=== PATIENT | female | born 1950 | race Caucasian/White ===

== ENCOUNTER 2017-02-02 22:10 | Inpatient (IN) | payer MEDICARE ==
[~2017-02-02] VITALS: Ht 167.6 cm; Wt 96.6 kg
--- NOTE | 2017-02-02 22:13 | NUR ---
Pt BIB Ambulance from [place], on 5150 hold for S.I., 2nd day of hold. Pt denies HI and halucinations. Pt c/o lower leg edema bilaterally. Pt denies CP, SOB, numbness/tingling, dizziness, n/v, no other complaints, no distress noted.
[2017-02-02] MEDS ORDERED: ALBUTEROL SULFATE 2.5 MG/3 ML NEBU NEB ONE (22:30)
[2017-02-02] MEDS ORDERED: BENA5TAB2 PO (22:31)
[2017-02-02] MEDS ORDERED: DILT240C2 PO (22:31)
[2017-02-02] MEDS ORDERED: AMIO200T6 PO (22:31)
[2017-02-02] MEDS ORDERED: FAMO-132 PO (22:31)
[2017-02-02] MEDS ORDERED: APIX5TAB PO (22:31)
[2017-02-02] MEDS ORDERED: ALBU8.5H8 IH (22:31)
[2017-02-02] MEDS ORDERED: POTA20LI4 PO (22:31)
[2017-02-02] MEDS ORDERED: FURO20TA4 PO (22:31)
[2017-02-02] MEDS ORDERED: CARV6.252 PO (22:31)
[2017-02-02] MEDS ORDERED: DIGO125T PO (22:31)
[2017-02-02] MEDS ORDERED: ALBUTEROL SULFATE 2.5 MG/3 ML NEBU ONE (22:37)
[2017-02-02] MEDS ORDERED: NITROGLYCERIN OINT 1 GM PACKET TP ONE ×2 (22:45→23:09)
[2017-02-02 23:21] LABS: CREATININE 1.2 mg/dL (0.6-1.3); POTASSIUM 4.3 mmol/L (3.5-5.1)
[2017-02-02 23:36] LABS: BILIRUBIN,DIRECT 0.1 mg/dL (0.0-0.2); BILIRUBIN,TOTAL 0.5 mg/dL (0.2-1.0); TOTAL PROTEIN, SERUM 6.4 g/dL (6.4-8.2)
[2017-02-02 23:44] LABS: BASOPHILS # (AUTO) 0.3 K/uL (0.0-8.0); BASOPHILS % (AUTO) 2.5 % (0.0-2.0); EOSINOPHILS % (AUTO) 0.4 % (0.0-7.0); HEMATOCRIT 46.4 % (37-47); HEMOGLOBIN 14.6 G/DL (12.0-16.0); LYMPHOCYTES # (AUTO) 1.1 K/UL (0.8-4.8); LYMPHOCYTES % (AUTO) 9.5 % (20.5-51.5); MEAN CORPUSCULAR HEMOGLOBIN 31.1 UUG (27.0-31.0); MEAN CORPUSCULAR HGB CONC 31 g/dL (32.0-37.0); MEAN CORPUSCULAR VOLUME 99.1 FL (81.0-99.0); MONOCYTES # (AUTO) 0.6 K/UL (0.1-1.30); MONOCYTES % (AUTO) 5.7 % (0.0-11.0); NEUTROPHILS # (AUTO) 9.4 K/UL (1.8-8.9); NEUTROPHILS % (AUTO) 81.9 % (38.5-71.5); PLATELET COUNT (AUTO) 202 K/UL (150-450); RED BLOOD CELL COUNT(AUTO) 4.68 MIL/UL (4.2-5.4); WHITE BLOOD COUNT (AUTO) 11.4 K/UL (4.0-11.2)
[2017-02-02] MEDS ORDERED: DIGOXIN 500 MCG/2 ML AMP IV ONE (23:45)
[2017-02-03] MEDS ORDERED: DIGOXIN 500 MCG/2 ML AMP ONE (00:09)
[2017-02-03] MEDS ORDERED: ONDANSETRON 4 MG/2 ML VIAL IV PRN (00:45)
[2017-02-03] MEDS ORDERED: methylPREDNISolone SOD SUCC 40 MG/ML VIAL IV SCH (00:45)
[2017-02-03] MEDS ORDERED: HYDROCODONE/APAP 5-325MG TABLET PO PRN (00:45)
[2017-02-03] MEDS ORDERED: ALBUTEROL SULFATE 2.5 MG/ 0.5 ML NEBU NEB ONE (00:45)
[2017-02-03] MEDS ORDERED: IPRATROPIUM BROMIDE 0.5 MG/2.5 ML NEBU NEB SCH ×2 (00:45→12:00)
[2017-02-03] MEDS ORDERED: Z GUARD REMEDY PASTE 57 GM TUBE TOP PRN (00:45)
--- NOTE | 2017-02-03 00:50 | NUR ---
Called report to [facility]
[2017-02-03 01:32] VITALS: BP 117/87
[2017-02-03] MEDS: ACETAMINOPHEN 325 MG TABLET PO PRN ×2 (01:54→20:22)
--- NOTE | 2017-02-03 02:00 | NUR ---
received pt from ER, pt alert,oriented, ambulates with walker.admitted due to Afib with RVR. pt is a transfer from [facility], per pt she is here to see a psyche doctor, pt verbalized being depress with her life and not currently taking any medications, denies any thought of hurting herself at this time, but pt will be 5150 with constant observer. heplock, kept on oxygen 2 liters, wheezing but no SOB at this time, vss,afebrile, given tylenol for headache.a-fib on monitor 110-140's HR.
[2017-02-03] MEDS ORDERED: ACETAMINOPHEN 325 MG TABLET ONE (02:05)
--- NOTE | 2017-02-03 04:09 | NUR ---
PT RECEIVED TX IN ER.
[2017-02-03 04:52] VITALS: BP 120/67
--- NOTE | 2017-02-03 06:00 | NUR ---
pt slept well overnight,uses commode without assistance, no changes overnight, afib on monitor 110-120's irregular.will continue to monitor, vss, afebrile,5150 hold.
--- NOTE | 2017-02-03 08:00 | NUR ---
AWAKE ALERT COOPERATE WELL NO RESPIRATORY DISTRESS CONTINUE O2 AT 2L/MIN O2 SAT WAS 96% ON FALL PRECAUTION CALL SCHWARTZ IN REACH AND BED ALARM ON SITTER 1:1 FOR SAFETY
[2017-02-03] MEDS: FUROSEMIDE 40 MG/4 ML VIAL IVP SCH (08:52)
[2017-02-03] MEDS ORDERED: FUROSEMIDE 20 MG/2 ML VIAL IV SCH (09:00)
[2017-02-03] MEDS: methylPREDNISolone SOD SUCC 40 MG/ML VIAL IV SCH ×2 (09:04→17:13)
[2017-02-03] MEDS ORDERED: AMIODARONE HCL 200 MG TABLET PO SCH (10:00)
[2017-02-03] MEDS ORDERED: CARVEDILOL 6.25 MG TABLET PO SCH (10:00)
[2017-02-03] MEDS ORDERED: BENAZEPRIL HCL 5 MG TABLET PO SCH (10:00)
[2017-02-03] MEDS ORDERED: DILTIAZEM HCL CD 240 MG CAP.SR.24H PO SCH (10:00)
[2017-02-03] MEDS ORDERED: HEPARIN SODIUM,PORCINE 5,000 UNITS/ML VIAL SQ SCH (10:00)
[2017-02-03 10:53] LABS: BILIRUBIN,TOTAL 0.6 mg/dL (0.2-1.0); CREATININE 1.2 mg/dL (0.6-1.3); MAGNESIUM 2.1 mg/dL (1.8-2.4); PHOSPHOROUS 5.1 mg/dL (2.5-4.9); TOTAL PROTEIN, SERUM 6.7 g/dL (6.4-8.2)
[2017-02-03 11:28] LABS: THYROID STIMULATING HORMONE 0.955 mIU/mL (0.358-3.740)
[2017-02-03 11:30] VITALS: BP 125/84
[2017-02-03 11:39] LABS: BASOPHILS # (AUTO) 0.1 K/uL (0.0-8.0); BASOPHILS % (AUTO) 0.6 % (0.0-2.0); EOSINOPHILS % (AUTO) 0.1 % (0.0-7.0); HEMATOCRIT 49.6 % (37-47); HEMOGLOBIN 15.6 G/DL (12.0-16.0); LYMPHOCYTES # (AUTO) 0.5 K/UL (0.8-4.8); LYMPHOCYTES % (AUTO) 4.6 % (20.5-51.5); MEAN CORPUSCULAR HEMOGLOBIN 30.8 UUG (27.0-31.0); MEAN CORPUSCULAR HGB CONC 31 g/dL (32.0-37.0); MONOCYTES % (AUTO) 0.1 % (0.0-11.0); NEUTROPHILS # (AUTO) 9.7 K/UL (1.8-8.9); NEUTROPHILS % (AUTO) 94.6 % (38.5-71.5); PLATELET COUNT (AUTO) 179 K/UL (150-450); WHITE BLOOD COUNT (AUTO) 10.3 K/UL (4.0-11.2)
[2017-02-03 11:51] LABS: RED BLOOD CELL COUNT(AUTO) 5.05 MIL/UL (4.2-5.4)
[2017-02-03 11:55] LABS: BAND % (MANUAL) 1 % (0-10); LYMPHOCYTES % (MANUAL) 2 % (20-40); MONOCYTES % (MANUAL) 1 % (2-10); NEUTROPHILS % (MANUAL) 96 % (42-75)
[2017-02-03] MEDS ORDERED: ALBUTEROL SULFATE 2.5 MG/ 0.5 ML NEBU NEB SCH (12:00)
[2017-02-03] MEDS ORDERED: IPRATROPIUM BROMIDE 0.5 MG/2.5 ML NEBU NEB PRN (12:00)
[2017-02-03] MEDS ORDERED: ALBUTEROL SULFATE 2.5 MG/3 ML NEBU NEB SCH (12:00)
[2017-02-03] MEDS ORDERED: ALBUTEROL SULFATE 2.5 MG/3 ML NEBU NEB PRN (12:00)
[2017-02-03] MEDS ORDERED: CEFTRIAXONE 1 G in IV DEXTROSE 5% 50 ML IV SCH (12:00)
[2017-02-03] MEDS ORDERED: ALBUTEROL SULFATE 2.5 MG/ 0.5 ML NEBU NEB PRN (12:00)
[2017-02-03] MEDS: DILTIAZEM HCL CD 240 MG CAP.SR.24H PO SCH (12:05)
[2017-02-03] MEDS: FAMOTIDINE 20 MG TABLET PO SCH ×2 (12:08→20:08)
--- NOTE | 2017-02-03 13:00 | NUR ---
DR LINDER SEEN PATIENT THIS AFTERNOON PATIENT CONDITION INFORM NEW ORDER IN CHART HR STILL TACHYCARDIA VENDER WAS AWARE
[2017-02-03] MEDS: SERTRALINE HCL 50 MG TABLET PO SCH (13:09)
[2017-02-03] MEDS: DIGOXIN 125 MCG TABLET PO SCH (13:09)
[2017-02-03] MEDS: IPRATROPIUM BROMIDE 0.5 MG/2.5 ML NEBU NEB SCH ×3 (13:35→20:00)
[2017-02-03] MEDS: ALBUTEROL SULFATE 2.5 MG/ 0.5 ML NEBU NEB SCH ×2 (13:36→20:00)
[2017-02-03 13:39] LABS: *BILIRUBIN,URIN NEGATIVE (NEGATIVE); *BLOOD, URINE NEGATIVE (NEGATIVE); *CLARITY,URINE CLEAR (CLEAR); *COLOR,URINE LIGHT YELLOW (YELLOW); *KETONES,URINE NEGATIVE (NEGATIVE); *PROTEIN,URINE NEGATIVE (NEGATIVE); *UROBILINOGEN,URINE 0.2 E.U./dl (NORMAL); LEUKOCYTE ESTERASE ,URINE TRACE (NEGATIVE); NITRITE, URINE NEGATIVE (NEGATIVE); PH,URINE 6.5 (5.0-8.0); UGLUCOSE NEGATIVE (NEGATIVE)
[2017-02-03] MEDS: THIAMINE HCL 100 MG TABLET PO SCH (14:36)
[2017-02-03] MEDS: NICOTINE 21 MG/24HR PATCH TD SCH (14:36)
[2017-02-03] MEDS: MULTIVITAMINS,THERAPEUTIC TABLET PO SCH (14:36)
[2017-02-03] MEDS: FOLIC ACID 1 MG TABLET PO SCH (14:36)
[2017-02-03 15:00] VITALS: BP 110/59
[2017-02-03 15:23] LABS: SQUAMOUS EPITHELIAL CELL,UR MODERATE /HPF (NONE SEEN); YEAST,URINE RARE /HPF (NONE SEEN)
--- NOTE | 2017-02-03 15:30 | NUR ---
inhal tx given at 1335
[2017-02-03] MEDS: APIXABAN 5 MG TABLET PO SCH (17:13)
--- NOTE | 2017-02-03 18:00 | NUR ---
NO RESPIRATORY DISTRESS PAIN UNDER CONTROL SAFETY MEASURE PROVIDED BED ALARM ON AND SITTER 1:1 AT BEDSIDE NO S/S OF SUICIDAL THOUGHT
[2017-02-03 19:46] VITALS: BP 102/60
[2017-02-03] MEDS: LEVOFLOXACIN 500 MG/D5W 500 MG in PREMIXED 1 EACH IV SCH (20:08)
[2017-02-03] MEDS: POTASSIUM CHLORIDE 20 MEQ TAB.PRT.SR PO SCH (20:08)
[2017-02-04] VITALS (7 sets, daily range): BP systolic 100–125; BP diastolic 59–76
--- NOTE | 2017-02-04 00:50 | NUR ---
PT still awake watching tv, suddenly she call and complaining of not feeling good, she felt dizzy,, pt was sitting upright in bed, and adjusted her bed to low and checked her bp 123/76 hr 108. pt denies any chest pain , no sob,lips are pink. few minutes afterward pt feel better with head of bed lowered.went to check monitor but there was no changes in the rhythm when the incident occurs. pt adviced to get some sleep and rest. will continue to monitor.
[2017-02-04] MEDS: methylPREDNISolone SOD SUCC 40 MG/ML VIAL IV SCH ×3 (02:10→20:38)
--- NOTE | 2017-02-04 06:00 | NUR ---
no more episode of dizziness, afib on monitor hr 90-110's, sleeping well, voiding well using commode legs swelling subsided.vss,afebrile. will continue to monitor, 72 hr hold status, constant observer at bedside.
--- NOTE | 2017-02-04 07:00 | NUR ---
sputum sent to lab
[2017-02-04 07:03] LABS: BILIRUBIN,TOTAL 0.5 mg/dL (0.2-1.0); CREATININE 1.1 mg/dL (0.6-1.3); PHOSPHOROUS 4.7 mg/dL (2.5-4.9); POTASSIUM 4.3 mmol/L (3.5-5.1); TOTAL PROTEIN, SERUM 6.1 g/dL (6.4-8.2)
[2017-02-04 07:05] LABS: BASOPHILS % (AUTO) 0.1 % (0.0-2.0); HEMATOCRIT 45.1 % (37-47); HEMOGLOBIN 14.2 G/DL (12.0-16.0); LYMPHOCYTES # (AUTO) 0.4 K/UL (0.8-4.8); LYMPHOCYTES % (AUTO) 3.4 % (20.5-51.5); MEAN CORPUSCULAR HGB CONC 32 g/dL (32.0-37.0); MEAN CORPUSCULAR VOLUME 98.4 FL (81.0-99.0); MONOCYTES # (AUTO) 0.1 K/UL (0.1-1.30); NEUTROPHILS # (AUTO) 11.2 K/UL (1.8-8.9); NEUTROPHILS % (AUTO) 95.5 % (38.5-71.5); PLATELET COUNT (AUTO) 181 K/UL (150-450); RED BLOOD CELL COUNT(AUTO) 4.58 MIL/UL (4.2-5.4); WHITE BLOOD COUNT (AUTO) 11.7 K/UL (4.0-11.2)
[2017-02-04] MEDS: IPRATROPIUM BROMIDE 0.5 MG/2.5 ML NEBU NEB SCH ×5 (07:51→19:57)
[2017-02-04] MEDS: ALBUTEROL SULFATE 2.5 MG/ 0.5 ML NEBU NEB SCH ×5 (07:51→19:57)
--- NOTE | 2017-02-04 08:00 | NUR ---
RESTING QUIET NO RESPIRATORY DISTRESS CONTINUE O2 AT 2L /MIN AND KEEP HOB UP AT ALL TIME ON FALL PRECAUTION BED ALARM ON AND SITTER 1:1 AT BEDSIDE FOR SAFETY NO S/S OF SUCIDAL CLOSED OBSERVATION
[2017-02-04] MEDS: POTASSIUM CHLORIDE 20 MEQ TAB.PRT.SR PO SCH ×2 (08:30→20:38)
[2017-02-04] MEDS: FOLIC ACID 1 MG TABLET PO SCH (08:30)
[2017-02-04] MEDS: THIAMINE HCL 100 MG TABLET PO SCH (08:30)
[2017-02-04] MEDS: FAMOTIDINE 20 MG TABLET PO SCH ×2 (08:30→20:38)
[2017-02-04] MEDS: MULTIVITAMINS,THERAPEUTIC TABLET PO SCH (08:30)
[2017-02-04] MEDS: SERTRALINE HCL 50 MG TABLET PO SCH (08:30)
[2017-02-04] MEDS: DILTIAZEM HCL CD 240 MG CAP.SR.24H PO SCH (08:31)
[2017-02-04] MEDS: FUROSEMIDE 40 MG/4 ML VIAL IVP SCH (08:31)
[2017-02-04] MEDS: NICOTINE 21 MG/24HR PATCH TD SCH (08:33)
[2017-02-04] MEDS: APIXABAN 5 MG TABLET PO SCH ×2 (09:14→17:20)
[2017-02-04 09:17] LABS: ABG BASE EXCESS 4.1 mmol/L; ABG HCO3 29.8 mmol/L; ABG PCO2 48.3 mmHg (35.0-45.0); ABG PH 7.408 (7.350-7.450); ABG PO2 66.5 mmHg (75.0-100.0); ABG SITE LEFT BRACHIAL; ABG TOTAL HEMOGLOBIN 15.5 G/dL (12.0-16.0); COHb 1.3 % (0.5-1.5); MetHb 0.3 % (0.0-1.5); O2Hb 92.3 % (94.0-97.0); VENT MODE ROOM AIR
--- NOTE | 2017-02-04 11:00 | NUR ---
DR LINDER SEE PATIENT AND ABG RESULT INFORM NEW ORDER IN CHART
[2017-02-04] MEDS: DIGOXIN 125 MCG TABLET PO SCH (12:21)
[2017-02-04 13:43] LABS: BAND % (MANUAL) 4 % (0-10); LYMPHOCYTES % (MANUAL) 6 % (20-40); NEUTROPHILS % (MANUAL) 90 % (42-75)
--- NOTE | 2017-02-04 17:30 | NUR ---
CONDITION STABLE NO RESPIRATORY DISTRESS NO S/S OF SUICIDAL VERY COOPERATE SAFETY MEASURE PROVIDED SITTER 1:1 AT BEDSIDE AND CALL LIGHT WITHIN REACH
--- NOTE | 2017-02-04 19:35 | NUR ---
Received pt in bed, sitting up watching TV. Alert and oriented x 4, verbally responsive and able to make her needs known. Pt denies any pain or discomfort at this time. No apparent distress noted. Call light within reach. Bed in lowest position, locked w/ side rails up x 2. Safety measures and fall precaution maintained. Will continue to monitor. Continue current plan of care.
[2017-02-04] MEDS: LEVOFLOXACIN 500 MG/D5W 500 MG in PREMIXED 1 EACH IV SCH (20:39)
[2017-02-05 06:37] LABS: BASOPHILS % (AUTO) 0.1 % (0.0-2.0); HEMATOCRIT 45.7 % (37-47); HEMOGLOBIN 14.5 G/DL (12.0-16.0); LYMPHOCYTES # (AUTO) 0.4 K/UL (0.8-4.8); LYMPHOCYTES % (AUTO) 2.5 % (20.5-51.5); MEAN CORPUSCULAR HGB CONC 32 g/dL (32.0-37.0); MEAN CORPUSCULAR VOLUME 97.6 FL (81.0-99.0); MONOCYTES # (AUTO) 0.3 K/UL (0.1-1.30); MONOCYTES % (AUTO) 1.8 % (0.0-11.0); NEUTROPHILS # (AUTO) 13.4 K/UL (1.8-8.9); NEUTROPHILS % (AUTO) 95.6 % (38.5-71.5); PLATELET COUNT (AUTO) 160 K/UL (150-450); RED BLOOD CELL COUNT(AUTO) 4.68 MIL/UL (4.2-5.4); WHITE BLOOD COUNT (AUTO) 14.1 K/UL (4.0-11.2)
--- NOTE | 2017-02-05 06:52 | NUR ---
Pt in bed, appearing to be asleep. No apparent distress noted. Denies pain or discomfort at this time. Safety measures and fall precautions maintained. Call light within reach. Bed locked, lowest position and side rails up x 2. Sitter at bedside. Continue 1:1 for safety. Continue current plan of care.
[2017-02-05 07:16] LABS: BILIRUBIN,TOTAL 0.5 mg/dL (0.2-1.0); MAGNESIUM 2.1 mg/dL (1.8-2.4); PHOSPHOROUS 5.1 mg/dL (2.5-4.9); POTASSIUM 4.3 mmol/L (3.5-5.1); TOTAL PROTEIN, SERUM 5.8 g/dL (6.4-8.2)
[2017-02-05] MEDS: IPRATROPIUM BROMIDE 0.5 MG/2.5 ML NEBU NEB SCH ×4 (07:39→19:04)
[2017-02-05] MEDS: ALBUTEROL SULFATE 2.5 MG/ 0.5 ML NEBU NEB SCH ×4 (07:39→19:04)
[2017-02-05 08:00] VITALS: BP 135/87
[2017-02-05] MEDS: SERTRALINE HCL 50 MG TABLET PO SCH (09:10)
[2017-02-05] MEDS: THIAMINE HCL 100 MG TABLET PO SCH (09:10)
[2017-02-05] MEDS: FAMOTIDINE 20 MG TABLET PO SCH ×2 (09:10→21:21)
[2017-02-05] MEDS: FOLIC ACID 1 MG TABLET PO SCH (09:10)
[2017-02-05] MEDS: NICOTINE 21 MG/24HR PATCH TD SCH (09:10)
[2017-02-05] MEDS: POTASSIUM CHLORIDE 20 MEQ TAB.PRT.SR PO SCH ×2 (09:10→21:21)
[2017-02-05] MEDS: DILTIAZEM HCL CD 240 MG CAP.SR.24H PO SCH (09:12)
[2017-02-05] MEDS: FUROSEMIDE 20 MG TABLET PO SCH (09:12)
[2017-02-05] MEDS: methylPREDNISolone SOD SUCC 40 MG/ML VIAL IV SCH ×2 (09:13→21:21)
[2017-02-05] MEDS: MULTIVITAMINS,THERAPEUTIC TABLET PO SCH (09:13)
[2017-02-05] MEDS: APIXABAN 5 MG TABLET PO SCH ×2 (09:13→16:22)
[2017-02-05 11:26] VITALS: BP 148/73
--- NOTE | 2017-02-05 12:30 | NUR ---
PATIENT SEEN AND EXAMINED BY DR WHALEN WITH NEW ORDERS AND NOTED.PATIENT PLACED ON 14 DAY HOLD.PATIENT AWARE STATED DID NOT ATTEMPT TO KILL HERSELF ONLY THOUGHT ABOUT IT.
[2017-02-05] MEDS: DIGOXIN 125 MCG TABLET PO SCH (12:47)
[2017-02-05 15:47] VITALS: BP 114/69
--- NOTE | 2017-02-05 17:00 | NUR ---
SOME OF THE PATIENTS BELONGINGS WAS TAKEN AWAY FROM HER INCLUDING HER KEYS NAIL CLIPPER MAGNIFYING LENS ETC SEE THE PATIENTS BELONGINGS LIST AND PLACED IN THE CONTRABAND LOCKER ON THE SECOND FLOOR FOR SAFE KEEPING. PATIENT WAS INFORMED THAT WHEN SHE LEAVES WE WILL GIVE BACK HER BELONGINGS TO HER AND SHE EXPRESSED UNDERSTANDING.
[2017-02-05 19:21] VITALS: BP 125/71
--- NOTE | 2017-02-05 19:45 | NUR ---
Received pt in bed, awake alert oriented x 4 and watching TV. Verbally responsive and pleasant. No apparent distress noted. Bed lowest position, locked and side rails up x 2. Safety measures and fall precautions maintained. Call light within reach. Continue current plan of care. Will continue to monitor.
[2017-02-05] MEDS: LEVOFLOXACIN 500 MG/D5W 500 MG in PREMIXED 1 EACH IV SCH (21:21)
[2017-02-06] MEDS: LORAZEPAM 2 MG/1 ML VIAL IV PRN ×2 (01:58→19:52)
[2017-02-06 05:27] VITALS: BP 144/96
[2017-02-06 07:19] LABS: CREATININE 0.9 mg/dL (0.6-1.3); MAGNESIUM 2.1 mg/dL (1.8-2.4); PHOSPHOROUS 4.6 mg/dL (2.5-4.9); POTASSIUM 4.4 mmol/L (3.5-5.1)
[2017-02-06] MEDS: ALBUTEROL SULFATE 2.5 MG/ 0.5 ML NEBU NEB SCH ×4 (07:19→19:41)
[2017-02-06] MEDS: IPRATROPIUM BROMIDE 0.5 MG/2.5 ML NEBU NEB SCH ×4 (07:19→19:41)
--- NOTE | 2017-02-06 07:25 | NUR ---
Pt in bed, slept 2 hours last night. Alert and oriented x 4, verbally responsive. Vitals WNL, stable. No apparent distress noted. Fall precautions and safety measures maintained. Call light within reach. Bed low, locked and side rails up x 2.
[2017-02-06 07:28] LABS: BASOPHILS % (AUTO) 0.1 % (0.0-2.0); HEMATOCRIT 49.4 % (37-47); HEMOGLOBIN 15.6 G/DL (12.0-16.0); LYMPHOCYTES # (AUTO) 0.4 K/UL (0.8-4.8); LYMPHOCYTES % (AUTO) 2.6 % (20.5-51.5); MEAN CORPUSCULAR HEMOGLOBIN 31.1 UUG (27.0-31.0); MEAN CORPUSCULAR HGB CONC 32 g/dL (32.0-37.0); MEAN CORPUSCULAR VOLUME 98.7 FL (81.0-99.0); MONOCYTES # (AUTO) 0.1 K/UL (0.1-1.30); NEUTROPHILS # (AUTO) 13.4 K/UL (1.8-8.9); NEUTROPHILS % (AUTO) 96.3 % (38.5-71.5); PLATELET COUNT (AUTO) 162 K/UL (150-450); RED BLOOD CELL COUNT(AUTO) 5.01 MIL/UL (4.2-5.4); WHITE BLOOD COUNT (AUTO) 13.9 K/UL (4.0-11.2)
[2017-02-06] MEDS ORDERED: SERTRALINE HCL 50 MG TABLET PO SCH (09:00)
--- NOTE | 2017-02-06 09:00 | NUR ---
PATIENT IS AWAKE ALERT AND ORIENTED DENIES PAIN OR DISCOMFORTS AT THIS TIME PATIENT IS COMPLIANT WITH MEDICATIONS AT THIS TIME ENCOURAGED TO VERBALISE FEELINGS.
[2017-02-06] MEDS: FUROSEMIDE 20 MG TABLET PO SCH (09:33)
[2017-02-06] MEDS: DILTIAZEM HCL CD 240 MG CAP.SR.24H PO SCH (09:34)
[2017-02-06] MEDS: methylPREDNISolone SOD SUCC 40 MG/ML VIAL IV SCH (09:35)
[2017-02-06] MEDS: FAMOTIDINE 20 MG TABLET PO SCH ×2 (09:35→19:52)
[2017-02-06] MEDS: APIXABAN 5 MG TABLET PO SCH ×2 (09:35→17:22)
[2017-02-06] MEDS: FOLIC ACID 1 MG TABLET PO SCH (09:35)
[2017-02-06] MEDS: THIAMINE HCL 100 MG TABLET PO SCH (09:35)
[2017-02-06] MEDS: POTASSIUM CHLORIDE 20 MEQ TAB.PRT.SR PO SCH ×2 (09:35→19:53)
[2017-02-06] MEDS: NICOTINE 21 MG/24HR PATCH TD SCH (09:36)
[2017-02-06] MEDS: MULTIVITAMINS,THERAPEUTIC TABLET PO SCH (09:36)
[2017-02-06 11:25] LABS: BAND % (MANUAL) 4 % (0-10); LYMPHOCYTES % (MANUAL) 2 % (20-40); NEUTROPHILS % (MANUAL) 94 % (42-75)
[2017-02-06 12:00] VITALS: BP 131/85
[2017-02-06] MEDS ORDERED: DILT240C64 PO (12:26)
[2017-02-06] MEDS ORDERED: MULT-24 PO (12:26)
[2017-02-06] MEDS ORDERED: APIX5TAB PO (12:26)
[2017-02-06] MEDS ORDERED: PRED10TA PO (12:26)
[2017-02-06] MEDS ORDERED: LEVO500T2 PO (12:26)
[2017-02-06] MEDS ORDERED: FURO20TA4 PO (12:26)
[2017-02-06] MEDS ORDERED: IPRA0.2S6 NEB (12:26)
[2017-02-06] MEDS ORDERED: POTA20TA10 PO (12:26)
[2017-02-06] MEDS ORDERED: DIGO125T5 PO (12:26)
[2017-02-06] MEDS ORDERED: PRED20TA PO ×2 (12:26)
[2017-02-06] MEDS ORDERED: PRED-170 PO (12:26)
[2017-02-06] MEDS ORDERED: ACET325T53 PO (12:26)
[2017-02-06] MEDS ORDERED: FOLI1TAB16 PO (12:26)
[2017-02-06] MEDS ORDERED: ALBU2.5V13 NEB (12:26)
[2017-02-06] MEDS ORDERED: HYDR-3326 PO (12:26)
[2017-02-06] MEDS ORDERED: THIA100T13 PO (12:26)
[2017-02-06] MEDS ORDERED: NICO1PAT28 TD (12:26)
[2017-02-06] MEDS ORDERED: SERT50TA12 PO (12:26)
[2017-02-06] MEDS ORDERED: FAMO20TA8 PO (12:26)
--- NOTE | 2017-02-06 12:31 | NUR ---
ORDER NOTED FROM GRADY RUBBER WASHER TO DISCHARGE PATIENT TO THE MENTAL HEALTH UNIT AND NOTED.THERAPEUTIC RECREATION SPECIALIST AWARE AND STATED WILL CALL THE MENTAL HEALTH UNIT FOR BED AVAILABILITY.
[2017-02-06] MEDS ORDERED: LEVOFLOXACIN 500 MG TABLET PO SCH (13:00)
[2017-02-06] MEDS: DIGOXIN 125 MCG TABLET PO SCH (13:32)
[2017-02-06 16:14] VITALS: BP 134/75
[2017-02-06] MEDS ORDERED: predniSONE 20 MG TABLET PO SCH (18:00)
--- NOTE | 2017-02-06 18:30 | NUR ---
PATIENT IS BEING PREPPED FOR CONVERSION TO MENTAL HEALTH STATUS [place]OCK REMOVED AND PATIENT SIGNED FOR THE DISCHARGE INSTRUCTIONS.
--- NOTE | 2017-02-06 19:30 | NUR ---
RECEIVED PATIENT FROM DAY SHIFT NURSE. REPORT GIVEN AT BEDSIDE. PATIENT SITTING IN BED WITH NO SIGNS OF PAIN OR DISCOMFORT. 1:1 SITTER WITH PATIENT. WILL CONTINUE TO MONITOR PATIENT THROUGH OUT SHIFT.
[2017-02-06] MEDS: ACETAMINOPHEN 325 MG TABLET PO PRN (19:53)
--- NOTE | 2017-02-06 20:10 | NUR ---
Awake in bed no SOB denies chest pain. Anxious at this time c/o headache & insomnia. Vital signs are WNL. Routine night meds given, Ativan 1mg IVP adm. 1:1 sitter in room for safety.
[2017-02-06] MEDS ORDERED: methylPREDNISolone SOD SUCC 40 MG/ML VIAL IV SCH (21:00)
[2017-02-09] MEDS ORDERED: predniSONE 20 MG TABLET PO SCH (18:00)
[2017-02-11] MEDS ORDERED: predniSONE 10 MG TABLET PO SCH (18:00)
[2017-02-13] MEDS ORDERED: predniSONE 5 MG TABLET PO SCH (18:00)
== END 2017-02-06 20:18 | DRG 190 ==
LOC: ER 22:10 → TELE 02-03 00:50 → MED 02-04 10:30
PROVIDERS: ADMIT Internal Medicine; ATTEND Internal Medicine
DX: J44.1 Chronic obstructive pulmonary disease with (acute) exacerbation (principal); I50.33 Acute on chronic diastolic (congestive) heart failure; I31.3 Pericardial effusion (noninflammatory); R45.851 Suicidal ideations; F33.2 Major depressive disorder, recurrent severe without psychotic features; E88.09 Other disorders of plasma-protein metabolism, not elsewhere classified; E83.39 Other disorders of phosphorus metabolism; N39.0 Urinary tract infection, site not specified; I11.0 Hypertensive heart disease with heart failure; I48.2 Chronic atrial fibrillation; E78.5 Hyperlipidemia, unspecified; F17.210 Nicotine dependence, cigarettes, uncomplicated; K21.9 Gastro-esophageal reflux disease without esophagitis; I25.10 Atherosclerotic heart disease of native coronary artery without angina pectoris; Z59.0 Homelessness; F41.0 Panic disorder [episodic paroxysmal anxiety]; I73.00 Raynaud's syndrome without gangrene; R73.9 Hyperglycemia, unspecified; F10.10 Alcohol abuse, uncomplicated; E66.01 Morbid (severe) obesity due to excess calories; Z68.34 Body mass index [BMI] 34.0-34.9, adult; H54.42 Blindness, left eye, normal vision right eye; Z91.09 Other allergy status, other than to drugs and biological substances; R60.9 Edema, unspecified; D72.829 Elevated white blood cell count, unspecified
CPT/HCPCS: 36415; 36600; 70030-TC; 71010; 83735; 84100; 84443; 85025; 85610; 85730; 87070; 87086; 93005; 93307; 94640; 94664; A4663; J0696; J1160; J1644; J1940; J1956; J2060; J2920; J3590; J7040; J7050; J7060; J7512

== ENCOUNTER 2017-02-06 20:41 | Inpatient (IN) | payer MEDICARE ==
[~2017-02-06] VITALS: Ht 165.1 cm; Wt 89.4 kg
[2017-02-06 20:00] VITALS: BP 129/79
[~2017-02-06 20:41] MED LIST: ACET325T53 PO; ALBU2.5V13 NEB; ALBU8.5H8 IH; AMIO200T6 PO; APIX5TAB PO; BENA5TAB2 PO; CARV6.252 PO; DIGO125T PO; DIGO125T5 PO; DILT240C2 PO; DILT240C64 PO; FAMO-132 PO; FAMO20TA8 PO; FOLI1TAB16 PO; FURO20TA4 PO; HYDR-3326 PO; IPRA0.2S6 NEB; LEVO500T2 PO; MULT-24 PO; NICO1PAT28 TD; POTA20LI4 PO; POTA20TA10 PO; PRED-170 PO; PRED10TA PO; PRED20TA PO; SERT50TA12 PO; THIA100T13 PO
--- NOTE | 2017-02-06 22:00 | NUR ---
Discharged from Medsurg unit, admitted this patient to Psych for Suicidal Ideation. Awake alert & oriented x3, no SOB denies chest pain. Geropsych assessment done, patient remains depressed at this time, 1:1 sitter at bedside for patient's safety. Cooperative w/ staff & participates with current treatment plan. Vital signs are stable.
--- NOTE | 2017-02-07 07:00 | NUR ---
Fairly rested, slept 1 hour only. Remains anxious. No acute resp distress.
[2017-02-07 07:56] VITALS: BP 146/100
--- NOTE | 2017-02-07 08:00 | NUR ---
RESTING WELL NO SOB OR PAIN ON FALL PRECAUTION NO S/S OF SUICIDAL SITTER 1:1 AT BEDSIDE FOR SAFETY AND CALL LIGHT WITHIN REACH
--- NOTE | 2017-02-07 11:25 | NUR ---
Spoke with ACNP Pat regarding pt's complaint of shortness of breathe. New orders received and carried out.
[2017-02-07 11:30] VITALS: BP 129/95
--- NOTE | 2017-02-07 14:00 | NUR ---
RESTING WELL AND CALM TODAY NO SOB OR PAIN TAKE MEDICATION WELL COOPERATE AND NO S/S OF SUICIDAL
[2017-02-07 16:02] VITALS: BP 137/79
--- NOTE | 2017-02-07 17:00 | NUR ---
MOVE PATIENT TO ROOM 141B MHU AND REPORT GAVE TO NURSE CLAUDIO VIA TEL
--- NOTE | 2017-02-07 17:05 | NUR ---
RECEIVED PATIENT TRANSFER FROM MED SURG THIS PSYCH OVERFLOW 66 YEARS OLD BY W/CHAIR TO ROOM 141 BY W/CHAIR PATIENT IS ALERT AND ORIENTED ON ROOM AIR WITH NO SHORTNESS OF BREATH AT THIS TIME.ORIENTED TO ROOM AND UNIT PROTOCOL CONTRABANDS REMOVED FROM PATIENT AND PUT AWAY FOR SAFE KEEPING PATIENT IS DEPRESSED WITHDRAWN ONLY RESPONDS WHEN SPOKEN TO WILL CONTINUE TO OBSERVE PATIENT AND PROVIDE A SAFE AND THERAPEUTIC ENVIRONMENT.
--- NOTE | 2017-02-07 18:56 | NUR ---
PATIENT HAS OWN WALKER AND ABLE TO AMBULATE TO THE BATHROOM AND BACK TO THE CHAIR SEATED IN FRONT OF THE NURSES STATION
[2017-02-07 20:32] VITALS: BP 100/74
--- NOTE | 2017-02-07 22:00 | NUR ---
received to care, watching tv, pleasant, isolative, but pleasant upon approach. denies SI, or desire to harm self. compliant with medications and staff direction. as of 2199, she remains awake, watching tv. declines PRN medications at this time. no distress noted. will continue to monitor closely.
--- NOTE | 2017-02-08 01:54 | NUR ---
PRN restoril given for insomnia
--- NOTE | 2017-02-08 06:00 | NUR ---
slept 2.5 hours, total.
[2017-02-08 07:30] VITALS: BP 133/95
--- NOTE | 2017-02-08 14:45 | NUR ---
PATIENT SEEN AND EXAMINED BY GRADY VALERO COMBINE OPERATOR WITH NEW ORDERS AND NOTED.
--- NOTE | 2017-02-08 18:00 | NUR ---
NEW ORDER FOR DOPPLER OF BLE NOTED PATIENT AWARE.
[2017-02-08 20:45] VITALS: BP 123/71
--- NOTE | 2017-02-08 22:00 | NUR ---
received to care, watching tv, isolative, but pleasant upon approach. denies SI, or desire to harm self. compliant with medications and staff direction. as of 0, she remains awake, watching tv. does not want PRN medications at this time. no distress noted. will continue to monitor closely.
--- NOTE | 2017-02-09 01:30 | NUR ---
PRN restoril given for insomnia
--- NOTE | 2017-02-09 06:00 | NUR ---
slept 2.0 hours, total
[2017-02-09 07:30] VITALS: BP 104/62
[2017-02-09 08:12] LABS: BASOPHILS # (AUTO) 0.5 K/uL (0.0-8.0); BASOPHILS % (AUTO) 3.6 % (0.0-2.0); EOSINOPHILS # (AUTO) 0.2 K/uL (0.0-0.7); EOSINOPHILS % (AUTO) 1.3 % (0.0-7.0); HEMATOCRIT 51.8 % (37-47); LYMPHOCYTES # (AUTO) 2.7 K/UL (0.8-4.8); LYMPHOCYTES % (AUTO) 19.3 % (20.5-51.5); MEAN CORPUSCULAR HEMOGLOBIN 31.7 UUG (27.0-31.0); MEAN CORPUSCULAR HGB CONC 33 g/dL (32.0-37.0); MEAN CORPUSCULAR VOLUME 96.4 FL (81.0-99.0); MONOCYTES # (AUTO) 1.1 K/UL (0.1-1.30); MONOCYTES % (AUTO) 7.7 % (0.0-11.0); NEUTROPHILS # (AUTO) 9.5 K/UL (1.8-8.9); NEUTROPHILS % (AUTO) 68.1 % (38.5-71.5); PLATELET COUNT (AUTO) 152 K/UL (150-450); RED BLOOD CELL COUNT(AUTO) 5.38 MIL/UL (4.2-5.4)
[2017-02-09 08:31] LABS: BILIRUBIN,TOTAL 0.9 mg/dL (0.2-1.0); MAGNESIUM 2.2 mg/dL (1.8-2.4); PHOSPHOROUS 4.4 mg/dL (2.5-4.9); POTASSIUM 4.1 mmol/L (3.5-5.1); TOTAL PROTEIN, SERUM 5.5 g/dL (6.4-8.2)
--- NOTE | 2017-02-09 09:15 | NUR ---
PT REMAINS IN ROOM, GUARDED AND ISOLATIVE, WITH DEPRESSED MOOD, PT TOOK ALL AM MEDS. WILL CONTINUE TO MONITOR FOR SAFETY AND NEEDS.
[2017-02-09 10:38] LABS: EOSINOPHILS % (MANUAL) 1 % (0-8); LYMPHOCYTES % (MANUAL) 20 % (20-40); MONOCYTES % (MANUAL) 8 % (2-10); NEUTROPHILS % (MANUAL) 71 % (42-75)
--- NOTE | 2017-02-09 11:49 | NUR ---
Initial discharge instructions: [facility].She reports she will be needing help with placement.Per pt,she is interested in an assisted living facility or independent living.She does not want her step-daughter involved.SW will speak with pt and MD regarding appropriate discharge plans.SW will form a safe and proper discharge.
[2017-02-09 16:00] VITALS: BP 99/58
[2017-02-09 20:00] VITALS: BP 135/73
--- NOTE | 2017-02-10 00:53 | NUR ---
PRN restoril given, for insomnia
--- NOTE | 2017-02-10 01:30 | NUR ---
appears to be asleep.
--- NOTE | 2017-02-10 03:37 | NUR ---
pt is awake in bed, and restless. PRN ativan was given at this time. will continue to monitor.
--- NOTE | 2017-02-10 06:00 | NUR ---
slept 3.0 hours, total.
[2017-02-10 07:30] VITALS: BP 107/66
[2017-02-10 07:45] LABS: BASOPHILS # (AUTO) 0.1 K/uL (0.0-8.0); BASOPHILS % (AUTO) 0.4 % (0.0-2.0); EOSINOPHILS # (AUTO) 0.3 K/uL (0.0-0.7); EOSINOPHILS % (AUTO) 2.2 % (0.0-7.0); HEMATOCRIT 51.3 % (37-47); HEMOGLOBIN 16.8 G/DL (12.0-16.0); MEAN CORPUSCULAR HEMOGLOBIN 31.8 UUG (27.0-31.0); MEAN CORPUSCULAR HGB CONC 33 g/dL (32.0-37.0); MEAN CORPUSCULAR VOLUME 97.1 FL (81.0-99.0); MONOCYTES # (AUTO) 1.3 K/UL (0.1-1.30); MONOCYTES % (AUTO) 8.4 % (0.0-11.0); NEUTROPHILS # (AUTO) 10.4 K/UL (1.8-8.9); PLATELET COUNT (AUTO) 166 K/UL (150-450); RED BLOOD CELL COUNT(AUTO) 5.29 MIL/UL (4.2-5.4); WHITE BLOOD COUNT (AUTO) 15.1 K/UL (4.0-11.2)
[2017-02-10 07:51] LABS: BILIRUBIN,TOTAL 0.9 mg/dL (0.2-1.0); CREATININE 1.1 mg/dL (0.6-1.3); MAGNESIUM 2.2 mg/dL (1.8-2.4); PHOSPHOROUS 4.4 mg/dL (2.5-4.9); POTASSIUM 4.1 mmol/L (3.5-5.1); TOTAL PROTEIN, SERUM 5.5 g/dL (6.4-8.2)
[2017-02-10 15:31] VITALS: BP 96/60
[2017-02-10 20:14] VITALS: BP 113/61
[2017-02-11 07:30] VITALS: BP 127/91
--- NOTE | 2017-02-11 07:30 | NUR ---
on bed, resting. breakfast served in room, doesnt want to go to tv room for now. comfortable
--- NOTE | 2017-02-11 08:02 | NUR ---
Patient slept 4.30 hours this shift. Cooperative with Routine scheduled medications. Limited eye contact with no disclosure kof treatment issues. Deficits in social skills and impulse control
--- NOTE | 2017-02-11 10:37 | NUR ---
took meds without problem. converse shortly and then back to bed.
[2017-02-11 15:37] VITALS: BP 102/56
[2017-02-11 15:52] LABS: *BILIRUBIN,URIN NEGATIVE (NEGATIVE); *BLOOD, URINE NEGATIVE (NEGATIVE); *CLARITY,URINE SLIGHTLY CLOUDY (CLEAR); *COLOR,URINE YELLOW (YELLOW); *KETONES,URINE NEGATIVE (NEGATIVE); *PROTEIN,URINE NEGATIVE (NEGATIVE); *UROBILINOGEN,URINE 0.2 E.U./dl (NORMAL); LEUKOCYTE ESTERASE ,URINE NEGATIVE (NEGATIVE); NITRITE, URINE NEGATIVE (NEGATIVE); UGLUCOSE NEGATIVE (NEGATIVE)
[2017-02-11 16:14] LABS: BACTERIA,URINE NONE SEEN /HPF (NONE SEEN); RBC,URINE 0-3 /HPF (0-3); SQUAMOUS EPITHELIAL CELL,UR NONE SEEN /HPF (NONE SEEN); WBC,URINE 0-3 /HPF (0-3)
[2017-02-11 20:32] VITALS: BP 109/65
[2017-02-11 20:33] VITALS: BP 109/65
--- NOTE | 2017-02-12 06:54 | NUR ---
DENIES SI, CFS. PER Pt REQUEST, RESTORIL 7.5mg ADMINISTERED AT 2357 WITH GOOD EFFECT. SLEPT 2.5 HOURS. IN NO ACUTE DISTRESS AT THIS TIME.
[2017-02-12 07:30] VITALS: BP 124/78
[2017-02-12 07:39] LABS: BILIRUBIN,TOTAL 0.8 mg/dL (0.2-1.0); PHOSPHOROUS 4.2 mg/dL (2.5-4.9); POTASSIUM 4.3 mmol/L (3.5-5.1); TOTAL PROTEIN, SERUM 5.8 g/dL (6.4-8.2)
[2017-02-12 08:19] LABS: EOSINOPHILS % (AUTO) 1.8 % (0.0-7.0); HEMATOCRIT 51.2 % (37-47); HEMOGLOBIN 16.4 G/DL (12.0-16.0); LYMPHOCYTES % (AUTO) 21.6 % (20.5-51.5); MEAN CORPUSCULAR HEMOGLOBIN 31.2 UUG (27.0-31.0); MEAN CORPUSCULAR HGB CONC 32 g/dL (32.0-37.0); MEAN CORPUSCULAR VOLUME 97.2 FL (81.0-99.0); MONOCYTES % (AUTO) 8.7 % (0.0-11.0); NEUTROPHILS % (AUTO) 67.6 % (38.5-71.5); PLATELET COUNT (AUTO) 152 K/UL (150-450); RED BLOOD CELL COUNT(AUTO) 5.27 MIL/UL (4.2-5.4)
[2017-02-12 17:11] VITALS: BP 92/54
[2017-02-12 20:09] VITALS: BP 123/54
--- NOTE | 2017-02-12 23:58 | NUR ---
PRN restoril given, for insomnia
--- NOTE | 2017-02-13 06:00 | NUR ---
slept 7.0 hours, total
[2017-02-13 08:07] VITALS: BP 111/65
[2017-02-13 17:20] VITALS: BP 111/56
[2017-02-13 20:30] VITALS: BP 104/63
--- NOTE | 2017-02-14 06:33 | NUR ---
Pt slept 4 hrs through the night. Restoril 7.5 mg PO prn insomnia was given 0116. Not effective. Ativan 0.5 mg PO prn was given 0214. Effective.
[2017-02-14 07:30] VITALS: BP 107/54
[2017-02-14 16:00] VITALS: BP 100/72
--- NOTE | 2017-02-14 18:30 | NUR ---
NO BEHAVIOR PROBLEM TODAY PT MED COMPLIANT AND COOPERATIVE ON UNIT AFFECT SAD AND MOOD DEPRESSED . PLAN TO BE DISCHARGED HOME TOMMORROW, CONTINUE TO MONITOR FOR SAFETY
--- NOTE | 2017-02-14 19:30 | NUR ---
RECEIVED PATIENT SITTING IN THE DAY ROOM WATCHING T.V. NO ACUTE DISTRESS NOTED. NO C/O OF PAIN. NO SUICIDE IDEATIONS. PATIENT IS A&O X 4. VSS. SAFETY INITIATED. WALKER BY HER SIDE. PATIENT STATE THAT SHE WOULD LIKE HER SLEEPING PILL AND HER ANTIANXIETY PILL LATER TONIGHT. WILL REVIEW MEDS. WILL GIVE MEDS ORDERED. WILL CONTINUE TO MONITOR FOR PAIN.
--- NOTE | 2017-02-14 20:30 | NUR ---
REVIEWED PATIENT eMAR. PATIENT WANTED HER ATIVAN AND RESTORIL LATER TONIGHT. NOTED D/C'D HER ATIVAN AND RESTORIL THIS AFTERNOON. INITIATED A CALL TO DR. WHALEN. FOR SOME REASON SHE SAID "I SAW THAT THE LAST TIME SHE TOOK THE MEDS WAS ON 02/06/2017". SHE ALSO STATE THAT "SHE HAS COPD AND CHF, I DON'T WANT TO SEND HER HOME WITH THAT". TOLD TO DR. WHALEN THAT ACCORDING TO THE eMAR, LAST TIME SHE RECEIVED BOTH MEDS (WITH A 1.5-2 HR. DIFFERENCE), WAS THIS AM 02/14/2017 @ 0100. SAID "I DIDN'T SEE IT THAT WAY". AGREED THAT PATIENTS ADMITTED IN THE HOSPITAL TENDS TO BE ANXIOUS. SHE REQUEST TO PUT THE ORDER FOR RESTORIL AND ATIVAN AND SHE WILL DEAL WITH IT IN THE AM. DISCUSSED WITH BETHEL PERALTA AND CHARGE NURSE DANNY. ORDERED WAS PLACED AND PHARMACY ACKNOWLEDGE THE ORDER.
[2017-02-14 20:43] VITALS: BP 105/68
--- NOTE | 2017-02-14 23:52 | NUR ---
PATIENT REQUESTED HER SLEEP MEDICATION. GIVEN ORDERED. WILL CONTINUE TO MONITOR.
--- NOTE | 2017-02-15 00:54 | NUR ---
INSOMNIA WAS NOT CORRECTED.
--- NOTE | 2017-02-15 01:01 | NUR ---
ESCORTED PATIENT TO HER ROOM. GAVE ATIVAN 1 MG. ORDERED. SAFETY INITIATED. WILL CONTINUE TO MONITOR.
--- NOTE | 2017-02-15 06:14 | NUR ---
NO CHANGES T/O SHIFT. PATIENT SLEPT 3.5 HOURS. NO BEHAVIORAL CHANGES. NO NOTED SUICIDAL IDEATIONS. SAFETY AND COMFORT MEASURES MAINTAINED T/O SHIFT. VSS. ALL MEDS GIVEN ORDERED. PARTIAL LINEN CHANGE. ALL NEEDS MET.
[2017-02-15 07:12] LABS: BASOPHILS # (AUTO) 0.1 K/uL (0.0-8.0); BASOPHILS % (AUTO) 0.5 % (0.0-2.0); EOSINOPHILS # (AUTO) 0.2 K/uL (0.0-0.7); EOSINOPHILS % (AUTO) 1.3 % (0.0-7.0); HEMATOCRIT 49.6 % (37-47); HEMOGLOBIN 15.8 G/DL (12.0-16.0); LYMPHOCYTES # (AUTO) 2.7 K/UL (0.8-4.8); LYMPHOCYTES % (AUTO) 18.9 % (20.5-51.5); MEAN CORPUSCULAR HEMOGLOBIN 30.7 UUG (27.0-31.0); MEAN CORPUSCULAR HGB CONC 32 g/dL (32.0-37.0); MEAN CORPUSCULAR VOLUME 96.3 FL (81.0-99.0); MONOCYTES % (AUTO) 6.7 % (0.0-11.0); NEUTROPHILS # (AUTO) 10.3 K/UL (1.8-8.9); NEUTROPHILS % (AUTO) 72.6 % (38.5-71.5); PLATELET COUNT (AUTO) 138 K/UL (150-450); RED BLOOD CELL COUNT(AUTO) 5.15 MIL/UL (4.2-5.4); WHITE BLOOD COUNT (AUTO) 14.3 K/UL (4.0-11.2)
[2017-02-15 07:30] VITALS: BP 122/69
[2017-02-15 08:08] LABS: CREATININE 1.1 mg/dL (0.6-1.3); POTASSIUM 4.2 mmol/L (3.5-5.1)
--- NOTE | 2017-02-15 12:28 | NUR ---
DC Note: Patient will be discharged to [facility] [[address] [place] [address]; ] via ambulance at 2:00 pm. Spoke with Ej at the facility who stated they would accept the patient today. Patient has no family to contact to assist with discharge planning. Patient is aware and agreeable with discharge plans as well. Patient was provided with brief substance abuse intervention and encouraged to present at [facility] [[address] [place], [address], ;] at 9:00 am on 02/16/17 for intake screening. Patient was provided with a tobacco cessation referral and encouraged to attend a Narcotics Anonymous meeting [[id number] [place] [address]] on 02/20/17 at 7:00 pm. Patient is alert and oriented x4 and denies suicidal and homicidal ideations. Patient was provided with outpatient mental health resources to [facility] , Eul[facility] Patino , and the National Suicide Prevention Lifeline . Patient was also referred to , , and [phone] for psychiatrist referrals. Patient was also referred to the [facility] [phone] for biological lab technician referrals.
[2017-02-15 15:00] VITALS: BP 115/70
--- NOTE | 2017-02-15 20:20 | NUR ---
PT RECEIVED IN THE DAY ROOM WATCHING TV, NO INTERACTION WITH PEERS NOTED, STILL ISOLATIVE AND WITHDRAWN, WITH DEPRESSED MOOD AND FLAT AFFECT, MAKES HER NEEDS KNOWN, WILL CONTINUE TO MONITOR CLOSELY.
[2017-02-15 20:38] VITALS: BP 117/71
[2017-02-16 07:30] VITALS: BP 112/61
[2017-02-16 08:50] VITALS: BP 112/61
--- NOTE | 2017-02-16 10:34 | NUR ---
DC Note: Patient will be discharged today 02/16/17 to [facility] [[address] [place] [address]; ] via ambulance at 2:00 pm. Spoke with Ej at the facility who stated they would accept the patient today. Patient has no family to contact to assist with discharge planning. Patient is aware and agreeable with discharge plans as well. Patient was provided with brief substance abuse intervention and encouraged to present at [facility] [[address] [place], [address], ;( [phone]] at 9:00 am on 02/16/17 for intake screening. Patient was provided with a tobacco cessation referral and encouraged to attend a Narcotics Anonymous meeting [[address] [facility], [address]] on 02/20/17 at 7:00 pm. Patient is alert and oriented x4 and denies suicidal and homicidal ideations. Patient was provided with outpatient mental health resources to [facility] Crisis Line , [facility] Pat[facility] , and the [place] Suicide Prevention Lifeline . Patient was also referred to , , and [phone] for psychiatrist referrals. Patient was also referred to the [facility] [phone] for local company flatbed truck driver referrals.
--- NOTE | 2017-02-16 13:15 | NUR ---
PT WAS DISCHARGED WITH ALL BELONGINGS, VALUABLES, MEDICATIONS, EXIT CARE, AND PRESCRIPTIONS. PT DENIES SUICIDAL AND HOMICIDAL IDEATIONS, COMPLIANT WITH MEDS AND CARE. GAVE INSTRUCTIONS TO FOLLOW UP WITH PSYCH AND SITE SAFETY MANAGER WITHIN ONE WEEK AND TO CALL 911 IF FEELING SUICIDAL.
== END 2017-02-16 13:15 | DRG 885 ==
LOC: GPSOV 20:41 → GPS 02-07 17:03
PROVIDERS: ADMIT Psychiatry & Neurology Psychosomatic Medicine; ATTEND Internal Medicine
DX: F33.2 Major depressive disorder, recurrent severe without psychotic features (principal); I11.0 Hypertensive heart disease with heart failure; E44.0 Moderate protein-calorie malnutrition; E87.1 Hypo-osmolality and hyponatremia; D69.6 Thrombocytopenia, unspecified; I31.3 Pericardial effusion (noninflammatory); D75.1 Secondary polycythemia; I48.2 Chronic atrial fibrillation; R45.851 Suicidal ideations; I50.32 Chronic diastolic (congestive) heart failure; J44.9 Chronic obstructive pulmonary disease, unspecified; F41.0 Panic disorder [episodic paroxysmal anxiety]; D72.829 Elevated white blood cell count, unspecified; E66.9 Obesity, unspecified; E78.5 Hyperlipidemia, unspecified; F10.10 Alcohol abuse, uncomplicated; F17.210 Nicotine dependence, cigarettes, uncomplicated; K21.9 Gastro-esophageal reflux disease without esophagitis; I25.10 Atherosclerotic heart disease of native coronary artery without angina pectoris; I73.00 Raynaud's syndrome without gangrene; R73.9 Hyperglycemia, unspecified; Z59.0 Homelessness; R74.0 Nonspecific elevation of levels of transaminase and lactic acid dehydrogenase [LDH]; Z68.32 Body mass index [BMI] 32.0-32.9, adult; H54.42 Blindness, left eye, normal vision right eye; T38.0X5A Adverse effect of glucocorticoids and synthetic analogues, initial encounter; Y92.89 Other specified places as the place of occurrence of the external cause; Z79.899 Other long term (current) drug therapy
CPT/HCPCS: 36415; 71010; 83735; 84100; 85025; 87086; 94640; J3590; J7512